=== PATIENT | female | born 1985 | race Caucasian/White ===

== ENCOUNTER 2018-04-08 16:48 | Emergency (ER) | payer MEDICAID ==
[~2018-04-08] VITALS: Ht 157.5 cm; Wt 64.9 kg
[2018-04-08 17:23] VITALS: BP 123/71
--- NOTE | 2018-04-08 17:28 | NUR ---
PT AMBULATES TO BED 1
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
[2018-04-08] MEDS ORDERED: KETOROLAC 30 MG/ML VIAL IM ONE (19:25)
[2018-04-08 19:45] LABS: BARBITURATE, URINE NEG. ng/ml (NEG <=200); BENZODIAZEPINE, URINE NEG. ng/mL (NEG <=200); CANNABINOID, URINE NEG. ng/mL (NEG <=50); COCAINE, URINE NEG. ng/mL (NEG <=300); OPIATE, URINE NEG. ng/mL (NEG <=2000); PHENCYCLIDINE SCREEN,URINE NEG. ng/mL (NEG <=25)
[2018-04-08] MEDS ORDERED: LIDOCAINE/EPI 1% 1:100000 20 ML VIAL INJ ONE (20:05)
[2018-04-08] MEDS ORDERED: LIDOCAINE/EPI 2% 1:100000 20 ML VIAL INJ ONE ×2 (20:20→20:21)
--- NOTE | 2018-04-08 20:30 | NUR ---
I&D Procedure done by Dr HAWLEY. DSD applied. Pt procedure. Wound care discussed w/ patient.
--- NOTE | 2018-04-08 20:59 | NUR ---
BANDAID AND BLANCA WRAP APPLIED TO R LOWER LEG. +CSM PRIOR TO AND AFTER APPLICATION
[2018-04-08 21:05] VITALS: BP 110/78
--- NOTE | 2018-04-08 21:05 | NUR ---
Patient discharged with v/s stable. Written and verbal after care instructions given and explained. Patient alert, oriented and verbalized understanding of instructions. Ambulatory with steady gait. All questions addressed prior to discharge. ID band removed. Patient advised to follow up with PMD. Rx of NAPROSYN, LIDODERM PATCH given. Patient educated on indication of medication including possible reaction and side effects. Opportunity to ask questions provided and answered.
== END 2018-04-08 21:05 | disposition home or self-care (01) ==
LOC: MED 16:48
DX: S20.212A Contusion of left front wall of thorax, initial encounter (principal); S80.11XA Contusion of right lower leg, initial encounter; F17.210 Nicotine dependence, cigarettes, uncomplicated; V98.8XXA Other specified transport accidents, initial encounter; Y93.I9 Activity, other involving external motion; Y92.89 Other specified places as the place of occurrence of the external cause; Y99.8 Other external cause status
CPT/HCPCS: 10060; 71045; 80305; 81002; 81025; 93971; 96372; 99285; J1885; J2001; Q0092

== ENCOUNTER 2018-08-24 18:18 | Emergency (ER) | payer MEDICAID ==
[~2018-08-24] VITALS: Ht 157.5 cm; Wt 59.0 kg
[2018-08-24 18:28] VITALS: BP 125/59
[2018-08-24] MEDS ORDERED: KETOROLAC 60 MG/2 ML VIAL IM ONE (20:40)
[2018-08-24 21:01] VITALS: BP 125/59
== END 2018-08-24 20:58 | disposition home or self-care (01) ==
LOC: MED 18:18
DX: S20.20XA Contusion of thorax, unspecified, initial encounter (principal); R10.9 Unspecified abdominal pain; V87.8XXA Person injured in other specified noncollision transport accidents involving motor vehicle (traffic), initial encounter; Y93.89 Activity, other specified; Y92.89 Other specified places as the place of occurrence of the external cause; Y99.8 Other external cause status
CPT/HCPCS: 71045; 96372; 99283; J1885; Q0092

== ENCOUNTER 2018-09-21 18:10 | Emergency (ER) | payer MEDICAID ==
[~2018-09-21] VITALS: Ht 160 cm; Wt 63.5 kg
--- NOTE | 2018-09-21 18:23 | NUR ---
PT AMBULATED TO ER BED 02
[2018-09-21 18:25] VITALS: BP 137/75
--- NOTE | 2018-09-21 18:25 | NUR ---
BIB SELF WITH C/O OF LEFT CHEST WALL PAIN X 3 MONTHS. DENIES N/V/D; SKIN IS PINK/WARM/DRY; AAOX4 WITH EVEN AND STEADY GAIT; LUNGS CLEAR BL; HR EVEN AND REGULAR; PT DENIES ANY FEVER, CP, SOB, OR COUGH AT THIS TIME; PATIENT STATES PAIN OF 10/10 AT THIS TIME; VSS; PATIENT POSITIONED FOR COMFORT; HOB ELEVATED; BEDRAILS UP X2; BED DOWN. ER MD MADE AWARE OF PT STATUS.
[2018-09-21] MEDS ORDERED: KETOROLAC 60 MG/2 ML VIAL IM ONE (18:40)
[2018-09-21 18:59] VITALS: BP 137/75
--- NOTE | 2018-09-21 19:01 | NUR ---
Patient discharged with v/s stable. Written and verbal after care instructions given and explained. Patient alert, oriented and verbalized understanding of instructions. Ambulatory with steady gait. All questions addressed prior to discharge. ID band removed. Patient advised to follow up with PMD. Rx of NAPROSYN, PEPCID given. Patient educated on indication of medication including possible reaction and side effects. Opportunity to ask questions provided and answered.
== END 2018-09-21 19:01 | disposition home or self-care (01) ==
LOC: MED 18:10
DX: R07.89 Other chest pain (principal)
CPT/HCPCS: 96372; 99283; J1885

== ENCOUNTER 2018-10-06 14:04 | Emergency (ER) | payer SELFPAY ==
--- NOTE | 2018-10-06 14:33 | NUR ---
NO ANSWER IN ER LOBBY
--- NOTE | 2018-10-06 14:37 | NUR ---
NO ANSWER IN ER LOBBY
== END 2018-10-06 14:37 | disposition left against medical advice (07) ==
LOC: MED 14:04
DX: Z53.21 Procedure and treatment not carried out due to patient leaving prior to being seen by health care provider (principal)

== ENCOUNTER 2020-08-10 20:21 | Inpatient (IN) | payer MEDICAID, SELFPAY ==
[~2020-08-10] VITALS: Ht 160 cm; Wt 65.8 kg
[2020-08-10 20:40] VITALS: BP 120/75
--- NOTE | 2020-08-10 20:40 | NUR ---
TO LOBBY A/W BED AMBULATORY
--- NOTE | 2020-08-10 21:30 | NUR ---
SEEN AND EXAMINED BY MAURA WITH ORDERS AND CARRIED OUT
[2020-08-10] MEDS ORDERED: NACL 0.9% 1,000 ML IV ONE (21:35)
[2020-08-10] MEDS ORDERED: MORPHINE SULFATE 2 MG/ML SYR IVP ONE (21:35)
[2020-08-10] MEDS ORDERED: PANTOPRAZOLE 40 MG INJ VIAL IVP ONE (21:35)
[2020-08-10] MEDS ORDERED: ONDANSETRON 4 MG/2 ML VIAL IVP ONE (21:35)
[2020-08-10 22:02] LABS: BASOPHILS % (AUTO) 0.2 % (0.0-2.0); EOSINOPHILS % (AUTO) 0.5 % (0.0-4.0); HEMOGLOBIN 14.4 g/dL (12.0-16.0); LYMPHOCYTES # (AUTO) 0.9 K/uL (2.5-16.5); LYMPHOCYTES % (AUTO) 14.8 % (20.5-51.1); MEAN CORPUSCULAR HEMOGLOBIN 31 pg (27-31); MEAN CORPUSCULAR HGB CONC 34 g/dL (33-37); MEAN CORPUSCULAR VOLUME 90.2 fL (80-94); MONOCYTES # (AUTO) 0.5 K/uL (0.8-1.0); NEUTROPHILS # (AUTO) 4.5 K/uL (1.8-7.7); NEUTROPHILS % (AUTO) 75.5 % (42.2-75.2); PLATELET COUNT (AUTO) 251 K/uL (140-450); RED BLOOD CELL COUNT(AUTO) 4.65 MIL/uL (4.20-5.40); RED CELL DISTRIBUTION WIDTH 13.4 % (11.6-13.7)
[2020-08-10 22:21] LABS: ALBUMIN 3.7 g/dL (3.4-5.0); ANION GAP 9.7 (8-16); CARBON DIOXIDE 29.2 mmol/L (21-32); CREATININE 0.6 mg/dL (0.6-1.3); POTASSIUM 3.9 mmol/L (3.5-5.1); TOTAL BILIRUBIN 1.4 mg/dL (0.0-1.0)
[2020-08-10 23:15] LABS: HCG,QUANTITATIVE < 1 mIU/mL (0-6)
[2020-08-11] VITALS (7 sets, daily range): BP systolic 127–159; BP diastolic 78–94
[2020-08-11] MEDS ORDERED: ONDANSETRON 4 MG/2 ML VIAL IVP ONE
[2020-08-11] MEDS ORDERED: MORPHINE SULFATE 4 MG/ML SYR IVP ONE
[2020-08-11] MEDS ORDERED: PIPERACILLIN/TAZOBACTAM 3.375 GM in DEXTROSE 5% 50 ML IV ONE ×2
[2020-08-11] MEDS ORDERED: NACL 0.9% 1,000 ML IV ONE
--- NOTE | 2020-08-11 | NUR ---
MEDICATED PER ERMDS ORDER, TOLERATED WELL.
[2020-08-11] MEDS ORDERED: MORPHINE SULFATE 4 MG/ML SYR ONE (01:05)
[2020-08-11] MEDS ORDERED: ONDANSETRON 4 MG/2 ML VIAL ONE (01:06)
[2020-08-11 01:13] LABS: APPEARANCE,URINE SL CLOUDY (CLEAR); BILIRUBIN,URINE NEGATIVE (NEGATIVE); BLOOD, URINE NEGATIVE (NEGATIVE); COLOR,URINE YELLOW (YELLOW); LEUKOCYTE ESTERASE ,URINE NEGATIVE (NEGATIVE); NITRITE, URINE NEGATIVE (NEGATIVE); PH,URINE 8.5 (5.0-9.0); UGLUCOSE NEGATIVE (NEGATIVE)
[2020-08-11] MEDS ORDERED: PIPERACILLIN/TAZOBACTAM 3.375 GM VIAL IV ONE ×2 (01:47→21:28)
--- NOTE | 2020-08-11 02:00 | NUR ---
RESULTS BACK AND NOTED BY ERMD A/W DISPOSITION (PENDING ADMISSION)
[2020-08-11 02:18] LABS: RBC,URINE 0-5 /HPF (0-5); WBC,URINE 0-5 /HPF (0-5)
--- NOTE | 2020-08-11 05:00 | NUR ---
Patient appears to be resting comfortably in bed. Vital Signs within normal limits. Respirations even and unlabored.
[2020-08-11] MEDS ORDERED: DEXTROSE 5% 1,000 ML IV ONE (08:10)
--- NOTE | 2020-08-11 08:15 | NUR ---
MORPHINE 2MG GIVEN IVP AT THIS TIME, ORDER IN PLACE
[2020-08-11] MEDS ORDERED: MORPHINE SULFATE 2 MG/ML SYR ONE ×2 (08:23→13:35)
[2020-08-11] MEDS ORDERED: MORPHINE SULFATE 2 MG/ML SYR IVP PRN (09:00)
[2020-08-11] MEDS ORDERED: ONDANSETRON 4 MG/2 ML VIAL IM/IVP PRN (09:15)
[2020-08-11] MEDS ORDERED: DOCUSATE SODIUM 100 MG GELCAP PO PRN (09:15)
[2020-08-11] MEDS ORDERED: guaiFENesin DM 200/20 MG-10 ML 10 ML UDC PO PRN (09:15)
[2020-08-11] MEDS ORDERED: ZOLPIDEM 5 MG TAB PO PRN (09:15)
[2020-08-11] MEDS ORDERED: HYDROcodone/APAP 7.5/325 MG 1 TAB PO PRN (09:15)
[2020-08-11] MEDS ORDERED: ACETAMINOPHEN 325 MG TAB PO PRN (09:15)
[2020-08-11] MEDS ORDERED: POTASSIUM CHLORIDE 10 MEQ TABER PO PRN (09:15)
[2020-08-11 11:27] LABS: PROTHROMBIN TIME 9.9 secs (10.8-13.4)
[2020-08-11 12:52] LABS: CHOL/HDL RATIO 2.2 (1-4.5); FREE T4 (FREE THYROXINE) 1.25 ng/dL (0.76-1.46); MAGNESIUM 2.1 mg/dL (1.8-2.4); PHOSPHORUS 2.2 mg/dL (2.5-4.9); THYROID STIMULATING HORMONE 1.04 uIU/mL (0.34-3.74)
[2020-08-11] MEDS: PIPERACILLIN/TAZOBACTAM 3.375 GM in DEXTROSE 5% 50 ML IV SCH ×2 (13:30→21:32)
[2020-08-11] MEDS: MORPHINE SULFATE 2 MG/ML SYR IVP PRN (13:39)
--- NOTE | 2020-08-11 15:13 | NUR ---
Patient will be admitted to care of [facility]. Admited to MED SURG. Will go to room 123A. Belongings list completed. Report to LAUAR BARRETT.
--- NOTE | 2020-08-11 15:20 | NUR ---
REPORT FROM ER NURSE REPORT OBTAINED FROM ER NURSE TONEY, AND THIS NURSE ASSUME CARE UNTIL PATIENT WAS TAKEN TO OR. NPO SINCE ADMISSION.
--- NOTE | 2020-08-11 17:07 | NUR ---
PATIENT HAS BEEN SCREENED AND CATEGORIZED HIGH NUTRITION RISK. PATIENT WILL BE SEEN WITHIN 1-2 DAYS OF ADMISSION. 08/11/20-08/12/[address]
[2020-08-11] MEDS ORDERED: BUPIVACAINE-MPF 0.25% 30 ML VIAL INJ ONE (18:49)
[2020-08-11] MEDS ORDERED: HYDROcodone/APAP 5/325 MG 1 TAB TAB PO PRN (18:55)
[2020-08-11] MEDS ORDERED: HYDROmorphone 1 MG/ML AMP IVP PRN ×2 (18:55→19:25)
[2020-08-11] MEDS ORDERED: diphenhydrAMINE 50 MG/ML VIAL IVP PRN (19:25)
[2020-08-11] MEDS ORDERED: ONDANSETRON 4 MG/2 ML VIAL IVP PRN (19:25)
--- NOTE | 2020-08-11 19:25 | NUR ---
RECEIVED BEDSIDE REPORT FROM DAY SHIFT NURSE FOR CONTINUITY OF CARE. PT IS STILL IN SURGERY CURRENTLY. WILL WAIT FOR PT ARRIVAL. SPOKE TO SISTER, MARCO A, ON THE PHONE AND INFORMED HER I WILL CALL BACK WHEN I RECEIVE PT FROM SURGERY.
--- NOTE | 2020-08-11 19:25 | NUR ---
ENDORSEMENT AND NURSE REPORT REPORT GIVEN TO NIGHT NURSE OLEG TO ASSUME CONTINUITY OF CARE. PATIENT HAD WENT TO SURGERY ABOUT 184. NPO SINCE ADMISSION. DINNER AT BEDSIDE, IF PATIENT ABLE TO EAT DIET.
[2020-08-11] MEDS: MEPERIDINE 25 MG/ML SYR IVP PRN ×2 (20:25→20:35)
--- NOTE | 2020-08-11 21:00 | NUR ---
RECEIVED PT FROM OR NURSE FOR CONTINUITY OF CARE. PT ARRIVED VIA BED. PT IS AWAKE, BUT DROWSY. PT ANSWERS BY NAME. ON RA WITH BREATHING UNLABORED. O2 SAT AT 98%. CHEST RISE AND FALL SYMMETRICAL. ABDOMINAL INCISIONS X4 WITH DERMABOND IN PLACE. VS ARE STABLE AT THIS TIME. PT IS RESTING IN SEMI FOWLERS POSITION. SCD'S IN PLACE. WILL CONTINUE TO MONITOR.
[2020-08-11] MEDS: LACTATED RINGERS 1,000 ML IV SCH (21:33)
--- NOTE | 2020-08-11 23:00 | NUR ---
PT IS AWAKE AND USED THE BEDPAN TO VOID. PT TOLERATED MOVEMENT WELL AND DENIES PAIN AT THIS TIME. PT REQUESTED FOOD AND WAS GIVEN JELLO IN SMALL BITES WITH WATER. PT TOLERATED FOOD WELL. WILL CONTINUE TO ASSESS SWALLOWING REFLEX AND ADVANCE DIET APPROPRIATE ACCORDING TO ORDERS.
--- NOTE | 2020-08-12 01:39 | NUR ---
PT IS UP TO THE RESTROOM WITH ASSISTANCE OF THE CARPET TECHNICIAN. PT VOIDED AND NOW IS BACK IN BED. IV FLUIDS ARE PATENT AND INFUSING. NO DISTRESS NOTED AT THIS TIME AND NO PAIN APPARENT.
--- NOTE | 2020-08-12 03:35 | NUR ---
SPOKE TO SISTER, HEIDI, ON THE PHONE. UPDATED HER ON THE PLAN OF CARE AND STATUS OF THE PT. PT CONSENTED TO SHARING INFORMATION WITH HER SISTER, HEIDI. ALL QUESTIONS WERE ANSWERED.
[2020-08-12] MEDS: LACTATED RINGERS 1,000 ML IV SCH (03:45)
[2020-08-12 04:00] VITALS: BP 143/56
[2020-08-12] MEDS ORDERED: PIPERACILLIN/TAZOBACTAM 3.375 GM VIAL IV ONE (04:18)
[2020-08-12] MEDS: PIPERACILLIN/TAZOBACTAM 3.375 GM in DEXTROSE 5% 50 ML IV SCH (04:21)
--- NOTE | 2020-08-12 04:40 | NUR ---
BARN MANAGER AT BEDSIDE TAKING BLOOD FROM PT. PT IS GETTING VERBAL AT BARN MANAGER FOR PAIN CAUSED BY NEEDLE. NICOLA MATTSON AND ARNOLD LOPEZ DRESSED ARM AND ASSISTED PT.
[2020-08-12] MEDS: MORPHINE SULFATE 2 MG/ML SYR IVP PRN (05:01)
--- NOTE | 2020-08-12 05:01 | NUR ---
PT WAS MEDICATED WITH MORPHINE ORDERED FOR SEVERE PAIN. PT STATED PAIN 10/10. PAIN IS IN THE ABDOMEN WITH AN ACHING CHARACTERISTIC. BP WAS 144/62 PRIOR TO ADMINISTRATION. WILL CONTINUE TO MONITOR PAIN.
[2020-08-12 06:28] LABS: BASOPHILS % (AUTO) 0.1 % (0.0-2.0); HEMATOCRIT 39.1 % (36-48); HEMOGLOBIN 13.5 g/dL (12.0-16.0); LYMPHOCYTES # (AUTO) 0.6 K/uL (2.5-16.5); LYMPHOCYTES % (AUTO) 7.7 % (20.5-51.1); MEAN CORPUSCULAR HEMOGLOBIN 31 pg (27-31); MEAN CORPUSCULAR HGB CONC 35 g/dL (33-37); MEAN CORPUSCULAR VOLUME 89.4 fL (80-94); MONOCYTES # (AUTO) 0.2 K/uL (0.8-1.0); MONOCYTES % (AUTO) 2.2 % (1.7-9.3); NEUTROPHILS # (AUTO) 7.4 K/uL (1.8-7.7); PLATELET COUNT (AUTO) 276 K/uL (140-450); RED BLOOD CELL COUNT(AUTO) 4.37 MIL/uL (4.20-5.40); RED CELL DISTRIBUTION WIDTH 13.3 % (11.6-13.7); WHITE BLOOD COUNT (AUTO) 8.3 K/uL (4.8-10.8)
[2020-08-12 06:54] LABS: ALBUMIN 3.1 g/dL (3.4-5.0); ANION GAP 15.9 (8-16); CARBON DIOXIDE 21.2 mmol/L (21-32); CREATININE 0.6 mg/dL (0.6-1.3); POTASSIUM 4.1 mmol/L (3.5-5.1); TOTAL BILIRUBIN 1.1 mg/dL (0.0-1.0)
--- NOTE | 2020-08-12 06:58 | NUR ---
PT IS COMPLAINING OF PAIN AT A SCALE OF 6/10. PAIN IS IN THE ABDOMEN REGION AND ACHING. WILL CONTINUE TO MONITOR.
--- NOTE | 2020-08-12 07:05 | NUR ---
ENDORSED PT TO DAY SHIFT NURSE FOR CONTINUITY OF CARE. PT IS STABLE AT THIS TIME. PLAN OF CARE DISCUSSED.
--- NOTE | 2020-08-12 07:10 | NUR ---
RECEIVED REPORT FROM NIGHT NURSE PATIENT IS AAOX4 ON FULL LIQUID DIET AND S/P LAP CHOLECYTECTOMY, IV INTACT AND PATENT ON LEFT HAND, SKIN INTACT EXCEPT FPR 4 DERMA BAND ON THE ABDOMEN, ROOM AIR, AMBULATORY, SAFETY MEASURES IN PLACE AND CALL LIGHT WITHIN REACH. WILL CONTINUE TO MONITOR.
--- NOTE | 2020-08-12 07:38 | NUR ---
PATIENT WENT HOME AGAINST MEDICAL ADVICE, SIGNED THE FORM AND SEEN BY DR SCHMITZ .IV STILL ON THE PATIENT LEFT HAND PATIENT UNHOOK THE IV AND LEFT THE ROOM. UNABLE TO REMOVE IV PATIENT IS HESITANT TO GO HOME WITH HER BOYFRIEND. CHARGE NURSE AWARE.
[2020-08-12 08:07] LABS: T4 (THYROXINE) 8.7 ug/dL (4.5-12.0)
[2020-08-12] MEDS ORDERED: PANTOPRAZOLE 40 MG TABEC PO SCH (09:00)
== END 2020-08-12 07:40 | disposition left against medical advice (07) | DRG 263 ==
LOC: MED 20:21 → MTU 08-11 08:13
PROVIDERS: ADMIT Family Medicine; ATTEND Family Medicine
PROC: 0FT44ZZ Resection of Gallbladder, Percutaneous Endoscopic Approach (ICD-10-PCS; principal; 2020-08-11 17:40)
DX: K85.10 Biliary acute pancreatitis without necrosis or infection (principal); E87.1 Hypo-osmolality and hyponatremia; K80.42 Calculus of bile duct with acute cholecystitis without obstruction; F17.210 Nicotine dependence, cigarettes, uncomplicated; R74.01 Elevation of levels of liver transaminase levels; Z20.828 Contact with and (suspected) exposure to other viral communicable diseases
CPT/HCPCS: 36415; 71045; 76705; 80053; 81001; 82150; 83036; 83605; 83690; 83735; 83880; 84100; 84436; 84439; 84443; 84479; 84484; 84702; 85025; 85610; 85730; 87040; 87081; 87086; 88304; 93005; 96361; 96365; 96375; 99285; C1887; J2175; J2270; J2405; J2543; J3490; Q9967

== ENCOUNTER 2020-08-12 12:36 | Emergency (ER) | payer MEDICAID, SELFPAY ==
[~2020-08-12] VITALS: Ht 160 cm; Wt 63.5 kg
[2020-08-12 13:18] VITALS: BP_SYST 131; BP_SYST 147; BP_DIAS 100; BP_DIAS 64
--- NOTE | 2020-08-12 13:20 | NUR ---
Pt taken to er lobby to wait for available bed.
[2020-08-12] MEDS ORDERED: KETOROLAC 30 MG/ML VIAL IM ONE (13:30)
--- NOTE | 2020-08-12 13:30 | NUR ---
Pt was here last night, admitted for gall stones. Pt left last night against medical advice and returned this am with complaints of abd pain.
[2020-08-12 13:41] LABS: BASOPHILS % (AUTO) 0.1 % (0.0-2.0); HEMATOCRIT 37.8 % (36-48); HEMOGLOBIN 12.8 g/dL (12.0-16.0); LYMPHOCYTES # (AUTO) 1.5 K/uL (2.5-16.5); LYMPHOCYTES % (AUTO) 14.2 % (20.5-51.1); MEAN CORPUSCULAR HEMOGLOBIN 31 pg (27-31); MEAN CORPUSCULAR HGB CONC 34 g/dL (33-37); MEAN CORPUSCULAR VOLUME 89.7 fL (80-94); MONOCYTES # (AUTO) 0.6 K/uL (0.8-1.0); MONOCYTES % (AUTO) 5.6 % (1.7-9.3); NEUTROPHILS # (AUTO) 8.4 K/uL (1.8-7.7); NEUTROPHILS % (AUTO) 80.1 % (42.2-75.2); PLATELET COUNT (AUTO) 254 K/uL (140-450); RED BLOOD CELL COUNT(AUTO) 4.21 MIL/uL (4.20-5.40); RED CELL DISTRIBUTION WIDTH 13.6 % (11.6-13.7); WHITE BLOOD COUNT (AUTO) 10.5 K/uL (4.8-10.8)
[2020-08-12 14:28] LABS: ALBUMIN 3.3 g/dL (3.4-5.0); ANION GAP 13.6 (8-16); CARBON DIOXIDE 25.4 mmol/L (21-32); CREATININE 0.6 mg/dL (0.6-1.3); TOTAL BILIRUBIN 0.8 mg/dL (0.0-1.0)
[2020-08-12 14:41] VITALS: BP 131/64
--- NOTE | 2020-08-12 14:41 | NUR ---
Jazz read in ED - 08/12/20 at 1531 by MED Pt discharged by DEWAYNE matthews from [facility].
--- NOTE | 2020-08-12 14:41 | NUR ---
PT DISCHARGED BY DEWAYNE BEARD.
== END 2020-08-12 14:41 | disposition home or self-care (01) ==
LOC: MED 12:36
DX: R10.9 Unspecified abdominal pain (principal); R03.0 Elevated blood-pressure reading, without diagnosis of hypertension; E11.9 Type 2 diabetes mellitus without complications; Z90.49 Acquired absence of other specified parts of digestive tract; Z48.01 Encounter for change or removal of surgical wound dressing
CPT/HCPCS: 36415; 80053; 83690; 85025; 96372; 99283; J1885

== ENCOUNTER 2020-08-22 19:00 | Emergency (ER) | payer MEDICAID, SELFPAY ==
[~2020-08-22] VITALS: Ht 157.5 cm; Wt 63.5 kg
[2020-08-22 19:07] VITALS: BP 127/68
[2020-08-22] MEDS ORDERED: NACL 0.9% 1,000 ML IV SCH (19:35)
[2020-08-22] MEDS ORDERED: ONDANSETRON 4 MG/2 ML VIAL IVP ONE (19:35)
[2020-08-22] MEDS ORDERED: MORPHINE SULFATE 4 MG/ML SYR IVP ONE (19:35)
--- NOTE | 2020-08-22 20:00 | NUR ---
BLOOD CULTURES AND LABS COLLECTED AND HANDED TO LAB.
--- NOTE | 2020-08-22 20:02 | NUR ---
Pt ambulated to bed 3.
--- NOTE | 2020-08-22 20:10 | NUR ---
34 y/o female BIB self with c/o 05/30 "sharp" upper abdominal pain that started x 1 day ago. Pt reports having gallstone surgery on 08/12/20. Abdomen was flat, soft and non-tender to touch she reported pain on palpation. Denies having any N/V/D at this time. Bowel sounds were active x 4 quadrants. Reports having a normal BM this morning. Bed locked and in lowest position, side rail up x1. PMHX: Seizures & DM nka
[2020-08-22 20:11] LABS: BASOPHILS % (AUTO) 0.5 % (0.0-2.0); EOSINOPHILS # (AUTO) 0.1 K/uL (0-0.4); EOSINOPHILS % (AUTO) 1.2 % (0.0-4.0); HEMATOCRIT 37.3 % (36-48); HEMOGLOBIN 12.9 g/dL (12.0-16.0); LYMPHOCYTES % (AUTO) 34.3 % (20.5-51.1); MEAN CORPUSCULAR HEMOGLOBIN 31 pg (27-31); MEAN CORPUSCULAR HGB CONC 35 g/dL (33-37); MEAN CORPUSCULAR VOLUME 89.8 fL (80-94); MONOCYTES # (AUTO) 0.3 K/uL (0.8-1.0); MONOCYTES % (AUTO) 5.5 % (1.7-9.3); NEUTROPHILS # (AUTO) 3.4 K/uL (1.8-7.7); NEUTROPHILS % (AUTO) 58.5 % (42.2-75.2); PLATELET COUNT (AUTO) 461 K/uL (140-450); RED BLOOD CELL COUNT(AUTO) 4.15 MIL/uL (4.20-5.40); RED CELL DISTRIBUTION WIDTH 13.6 % (11.6-13.7); WHITE BLOOD COUNT (AUTO) 5.9 K/uL (4.8-10.8)
[2020-08-22 20:23] LABS: ALBUMIN 3.7 g/dL (3.4-5.0); ANION GAP 13.3 (8-16); CARBON DIOXIDE 24.8 mmol/L (21-32); CREATININE 0.7 mg/dL (0.6-1.3); POTASSIUM 4.1 mmol/L (3.5-5.1); TOTAL BILIRUBIN 0.2 mg/dL (0.0-1.0)
--- NOTE | 2020-08-22 20:40 | NUR ---
ER MD Dr. Julio exaplain procedure to pt for the need of CT w/IV contrast. Pt signed consent for procedure.
[2020-08-22 20:44] LABS: APPEARANCE,URINE CLEAR (CLEAR); BILIRUBIN,URINE NEGATIVE (NEGATIVE); BLOOD, URINE NEGATIVE (NEGATIVE); COLOR,URINE YELLOW (YELLOW); LEUKOCYTE ESTERASE ,URINE NEGATIVE (NEGATIVE); NITRITE, URINE NEGATIVE (NEGATIVE); PH,URINE 7.5 (5.0-9.0); UGLUCOSE NEGATIVE (NEGATIVE)
--- NOTE | 2020-08-22 20:45 | NUR ---
Pt taken to CT via W/C.
--- NOTE | 2020-08-22 21:00 | NUR ---
Pt returned from CT.
--- NOTE | 2020-08-22 22:20 | NUR ---
Followed up with radiology for CT results, per tech "results are being read and should show up within 10 more minutes".
--- NOTE | 2020-08-22 23:02 | NUR ---
Patient discharged with v/s stable. Written and verbal after care instructions given and explained.Patient alert, oriented and verbalized understanding of instructions. Ambulatory with steady gait. All questions addressed prior to discharge. ID band removed. Patient advised to follow up with PMD. Rx of Zofran odt & Edward given. Patient educated on indication of medication including possible reaction and side effects. Opportunity to ask questions provided and answered. IV removed, catheter intact and site benign. Applied folded 4x4 gauze and tape to stop bleeding.
[2020-08-22 23:05] VITALS: BP 121/70
== END 2020-08-22 23:02 | disposition home or self-care (01) ==
LOC: MED 19:00
DX: G89.18 Other acute postprocedural pain (principal); R10.11 Right upper quadrant pain; R11.0 Nausea; E11.9 Type 2 diabetes mellitus without complications; Z90.49 Acquired absence of other specified parts of digestive tract
CPT/HCPCS: 36415; 74177; 80053; 81003; 81025; 83690; 84703; 85025; 96361; 96374; 96375; 99285; J2270; J2405; Q9967

== ENCOUNTER 2022-12-22 15:27 | Emergency (ER) | payer MEDICAID ==
[~2022-12-22] VITALS: Ht 160 cm; Wt 70.3 kg
[2022-12-22 15:48] VITALS: BP 137/80
[2022-12-22 16:31] LABS: APPEARANCE,URINE CLEAR (CLEAR); BILIRUBIN,URINE NEGATIVE (NEGATIVE); BLOOD, URINE 1+ (NEGATIVE); COLOR,URINE YELLOW (YELLOW); LEUKOCYTE ESTERASE ,URINE TRACE (NEGATIVE); NITRITE, URINE NEGATIVE (NEGATIVE); UGLUCOSE NEGATIVE (NEGATIVE)
[2022-12-22] MEDS ORDERED: cefTRIAXone 500 MG in LIDOCAINE MPF 1% 1 ML IM ONE (16:50)
[2022-12-22] MEDS ORDERED: AZITHROMYCIN 250 MG TAB PO ONE (16:50)
[2022-12-22] MEDS ORDERED: NITR100C7 PO (16:50)
--- NOTE | 2022-12-22 16:55 | NUR ---
ATTEMPTED TO BRING PT BACK TO MEDICATE, NOT FOUND IN LOBBY/OUTSIDE
--- NOTE | 2022-12-22 16:59 | NUR ---
N/A [id number]
[2022-12-22] MEDS ORDERED: cefTRIAXone 500 MG VIAL ONE (17:15)
[2022-12-22] MEDS ORDERED: LIDOCAINE MPF 1% 5 ML ONE (17:16)
--- NOTE | 2022-12-22 17:25 | NUR ---
Patient discharged with v/s stable. Written and verbal after care instructions given and explained. Patient verbalized understanding. Ambulatory with steady gait. All questions addressed prior to discharge. Advised to follow up with PMD.
--- NOTE | 2022-12-24 16:40 | NUR ---
CULTURE REPORT RECEIVED. RESULTS REVIED BY DR. GARCIA. NO CHANGES RECEIVED. PT. NOT CONTACTED, PT. CAN CONTINUE WITH RX AND TREATMENT AT D/C, PER M
== END 2022-12-22 17:23 | disposition home or self-care (01) ==
LOC: MED 15:27
DX: N39.0 Urinary tract infection, site not specified (principal); Z11.3 Encounter for screening for infections with a predominantly sexual mode of transmission; E11.9 Type 2 diabetes mellitus without complications; Z86.69 Personal history of other diseases of the nervous system and sense organs; Z79.2 Long term (current) use of antibiotics
CPT/HCPCS: 81001; 81025; 87086; 87491; 96372; 99283; J0696; J2001